=== PATIENT | female | born 1965 | race Caucasian/White ===

== ENCOUNTER → 2023-01-21 07:46 | Outpatient (REF) | payer OTHER, SELFPAY ==
--- NOTE | 2023-01-21 07:58 | CA_ITS ---
Transthoracic Echocardiogram Patient (Last, First, Middle): Nessa Ring, Gender: Female Date of : 1965 Age: 57 Procedure Date: 01/21/2023 Procedure Type: Transthoracic Echocardiogram Location: [place] Height: 157.48 cm Weight: 58.06 kg BSA: 1.58 m2 Heart Rate: 63 bpm BP: 105 / 70 mmHg [employer] Operator: COLTON Referring MD: Scott DUNCAN Symptoms: LBBBI44.7 CP RP7.9 Study Quality: Adequate/Contrast ECG Rhythm: Sinus Conclusions: - The left ventricular systolic function is normal. The calculated ejection fraction is 56% by biplane method. - No obvious valvular pathology seen on this study. Findings Procedure Information Contrast agent, definity, is being given per protocol without apparent complications. Left Ventricle Normal left ventricular cavity size. There is normal left ventricular wall thickness. The left ventricular systolic function is normal. The calculated ejection fraction is 56% by biplane method. There is no evidence of regional wall motion abnormalities. There is paradoxical septal motion consistent with a left bundle branch block. Diastolic function is normal for age. Right Ventricle Normal right ventricular cavity size and systolic function. Atria Both atria are normal in size. Aortic Valve There is a normal trileaflet aortic valve. There is no aortic valve stenosis. There is no aortic valve regurgitation. Mitral Valve The mitral valve appears normal. There is no mitral valve regurgitation. There is no mitral valve stenosis. Pulmonic Valve The pulmonic valve is likely normal. Tricuspid Valve There is no tricuspid valve regurgitation. There is no evidence of pulmonary hypertension. Great Vessels The asc aorta is normal in size. Venous The inferior vena cava is normal in size and collapses greater than 50% with inspiration. Pericardium/Pleural There is no evidence of pericardial effusion. Prior Study Comparison No prior study available for comparison. Recommendations, Care & Conclusions No obvious valvular pathology seen on this study. Measurements 2D Linear Measurements IVSd: 0.53 0.6-0.9/0.6-1.0 cm LVIDd: 4.33 3.9-5.3/4.2-5.9 cm LVIDd Index: 2.74 2.4-3.2/2.2-3.1 cm/m2 LVIDs: 2.99 2.0-3.6 cm LVPWd: 0.69 0.7-1.1 cm LA Diam: 2.80 2.7-3.8/3.0-4.0 cm LAIDs Index: 1.77 1.5-2.3 cm/m2 LV Mass: 92.98 67-162/88-224 g LV Mass Index: 58.85 43-95/49-115 g/m2 LVOT Diam: 1.80 3.0+(-)1.3 cm 2D Systolic Function EF 4C: 53.30 >55% EF 2C: 61.70 >55% EF BiP: 55.60 >55% Mitral Valve MV Pk E: 0.89 MV PK A: 0.97 MV Decel Time: 258.00 E/A: 0.90 E'Lateral: 11.40 E'Medial: 7.40 E/E' Med: 12.00 E/E' Lat: 7.80 PHT: 76.00 MVA PHT: 2.89 Decel Gregg: 3.46 Aortic Valve AoV Pk Ha: 1.51 AoV Mn Ha: 1.07 AoV VTI: 0.36 AoV Pk Grad: 9.00 Aov Mn Grad: 5.00 EBEN Cont.VTI: 1.84 LVOT LVOT Pk Ha: 1.12 LVOT Mn Ha: 0.73 LVOT VTI: 0.26 LVOT Pk Grad: 5.00 LVOT Mn Grad: 3.00 LVOT Diam: 1.80 LVOT Area: 2.54 Diastolic Function MV Pk E: 0.89 MV Pk A: 0.97 E/A: 0.90 E'Medial: 7.40 E/E' Med: 12.00 E' Laterial: 11.40 E/E' Lat: 7.80 Right Ventricle TAPSE (mm): 29.50 TVS' Ha: 11.30 Tricuspid Valve RA Press: 3.00 Great Vessels Aorta Sinus of Valsalva: 2.90 2.0-3.5 cm Ao Asc: 3.10 2.1-3.4 cm Pulmonary Valve PV Pk Ha: 1.12 Peak PV Grad: 5.00 Updated in Other Vendor System with Status of Final Domingo Bernstein MD electronically signed on 01/21/2023 10:25:40 AM with status of Final
== END ==
LOC: HO.CARD 07:46
PROVIDERS: PCP Nurse Practitioner; Visit Provider Physician Assistant
DX: R07.9 Chest pain, unspecified (principal); I44.7 Left bundle-branch block, unspecified
CPT/HCPCS: 93306; Q9957